=== PATIENT | male | born 1990 | race Caucasian/White ===

== ENCOUNTER 2022-09-21 11:26 | Emergency (ER) | payer OTHER ==
--- NOTE | 2022-09-21 11:45 | ED Physician Documentation ---
PD HPI CHEST PAIN - Stated complaint Stated Complaint: SOA - Chief complaint Chief Complaint: Resp - History obtained from History obtained from: Patient - History of Present Illness Timing - onset: Yesterday Timing - onset during: Light activity Timing - duration: Days (1) Timing - details: Abrupt onset, Still present Location: Other (left CVA area) Radiation: Back. No: Neck, Abdominal Improved by: Rest Worsened by: Exertion, Inspiration. No: Movement, Palpation Associated symptoms: Shortness of air (he feels due to splinted breathing for pain.). No: Diaphoresis, Nausea, Feeling faint / dizzy Similar symptoms before: Has not had sx before Recently seen: Not recently seen Review of Systems Constitutional: denies: Fever, Chills Nose: denies: Rhinorrhea / runny nose, Congestion Throat: denies: Sore throat Cardiac: denies: Palpitations, Pedal edema, Calf pain Respiratory: denies: Cough, Wheezing GI: reports: Nausea. denies: Abdominal Pain, Vomiting, Diarrhea Skin: denies: Rash, Lesions PD PAST MEDICAL HISTORY - Present Medications Home Medications: Ambulatory Orders Medication Instructions Recorded Confirmed Famotidine [Pepcid] 20 mg PO BID 09/21/22 09/21/22 - Allergies Allergies/Adverse Reactions: Allergies Allergy/AdvReac Type Severity Reaction Status Date / Time No Known Drug Allergies Allergy Verified 09/21/22 11:36 PD ED PE NORMAL - Vitals Vital signs reviewed: Yes - General General: Alert and oriented X 3, No acute distress, Well developed/nourished - Neck Neck: Supple, no meningeal sign, No adenopathy - Cardiac Cardiac: RRR, No murmur - Respiratory Respiratory: No respiratory distress, Clear bilaterally, Other (left flank with tenderness to muscles.) - Abdomen Abdomen: Soft, Non tender - Derm Derm: Normal color, Warm and dry - Extremities Extremities: No edema, No calf tenderness / cord - Neuro Neuro: Alert and oriented X 3, No motor deficit, Normal speech Results - Vitals Vitals: Vital Signs - 24 hr 09/21/22 09/21/22 11:32 12:38 Temperature 36.4 C L Heart Rate 72 67 Respiratory 16 18 Rate Blood Pressure 163/90 H 151/100 H O2 Saturation 100 100 Oxygen O2 Source Room air - Rads (name of study) chest xray Relevant Findings:: Prelim report reviewed, EMP independent interpretation of test (no acute pulmonary abnormality. ), See rad report PD Medical Decision Making - ED course Complexity details: reviewed results, considered differential, d/w patient ED course: The patient onset of left flank pain just below the lower ribs last night into today. He denies any particular injury at onset. It hurts more with deep breathing and some with lateral movement of the trunk. Otherwise no dyspnea nor cough nor short of breath. He denies radiation of the pain to the abdomen or groin. The pain is essentially gone when resting and really just hurting with movement and deep breaths. He does work for [employer] so does do a lot of repetitive lifting and turning and twisting. He states his shoulders bother him at times but has not had this chest pain before. It does have a muscular component. His abdominal exam is nontender. His lungs are clear. He has not had any recent cold or cough. At this point it does seem likely muscular in nature. We discussed the potential for checking urine test, some blood test, CT scan for other eventualities like atypical or a small kidney stone or retroperitoneal hematoma or intestinal problems. I think these are less likely given his exam. Shared decision was to forego any further testing at this time with my sense that there is not a time urgency on his symptoms, meaning he can return if not improving or if new symptoms develop. He likes this approach and will stick with anti-inflammatories and Tylenol. Departure - Departure Disposition: 01 Home, Self Care Clinical Impression: Flank pain, acute Condition: Stable Record reviewed to determine appropriate education?: Yes Instructions: ED Flank Pain Uncertain Cause Comments: This sounds likely to be a muscular type process given the location and the character and provoking features. I do not get a sense of a more urgent process at this time. As we discussed, it could be reasonable to approach it with the regular use of some anti-inflammatory such as ibuprofen 600 to 800 mg 3 times daily with food for the next several days and add Tylenol every 4-6 hours if needed for pains. Try to be dietary aide on lifting and such but you would not necessarily need to be off work per se. Recheck if not improved well over the next couple of days. Be wary of increasing pain, radiation of it to more of the chest area or down into the abdomen or any associated fevers or rash, blood in the urine, discomfort urinating or other associated symptoms. Discharge Date/Time: 09/21/22 12:39
[2022-09-21] MEDS ORDERED: IBUPROFEN 800 MG TABLET PO STA (12:18)
[2022-09-21] MEDS ORDERED: ACETAMINOPHEN 325 MG TABLET PO STA (12:18)
[2022-09-21 12:47] VITALS: BP 151/100
== END 2022-09-21 12:39 | disposition home or self-care (01) ==
LOC: ED 11:26
DX: R10.10 Upper abdominal pain, unspecified (principal)
CPT/HCPCS: 99282; 99283; A9270